=== PATIENT | male | born 1955 | race Caucasian/White ===

== ENCOUNTER → 2020-05-26 08:46 | Outpatient (BNVA) | payer OTHER, SELFPAY | PROVIDERS: Family Provider General Practice; Visit Provider Specialist | DX: G56.03 Carpal tunnel syndrome, bilateral upper limbs (principal); R20.0 Anesthesia of skin; R20.2 Paresthesia of skin | CPT/HCPCS: 95910 ==

== ENCOUNTER 2023-05-08 11:32 | Outpatient (CLI) | payer MEDICARE, SELFPAY ==
--- NOTE | 2023-05-08 11:45 | MR_ITS ---
WS: [id number] MRI LEFT KNEE HISTORY: KNEE DERANGEMENT COMPARISON: None available. Anterior cruciate ligament: Increased signal and thickening consistent with mucoid degeneration. Posterior cruciate ligament: Intact. Medial collateral ligament: Edema surrounds the MCL with mild displacement from the joint line. No fu ll-thickness tear. Posterior lateral corner structures: Intact. Medial menisci: Small caliber posterior horn. Abnormal signal throughout the meniscus consistent with a complex tear. Slightly globular appearance of the posterior horn may be a meniscal fragment. Small caliber and blunted anterior horn. Lateral meniscus: Intact. Normal signal, size and shape. Extensor mechanism: Distal quadriceps tendon and patellar tendons are intact. Fluid and soft tissue: Small suprapatellar joint effusion. Mild soft tissue edema surrounding the kne e. No Bower's cyst. Osseous and articular structures: Patellofemoral compartment: Mild chondromalacia. Medial compartment: Marked narrowing medial compartment with loss of cartilage over the tibial platea u and weightbearing surface of the femoral condyle. Moderate amount of marrow edema in the medial fem oral condyle and tibial plateau. Partially extruded meniscus from the joint line. Lateral compartment: Mild narrowing with thinning and fissuring of the cartilage. MR/MR knee LT wo con* [id number] IMPRESSION: 1. Moderate amount of marrow edema in the medial femoral condyle and tibial pl ate[place]. 2. Marked narrowing medial compartment with complete loss of cartilage. 3. Abnormal signal in the anterior and posterior horns of the medial joint spa ce. Complex tear posterior horn. The anterior horn is slightly truncated and di splaced from the joint line. 4. Small amount of edema and small suprapatellar effusion.
== END 2023-05-08 11:33 | disposition home or self-care (01) ==
PROVIDERS: PCP Internal Medicine; Visit Provider Internal Medicine
DX: M23.92 Unspecified internal derangement of left knee (principal); S83.232A Complex tear of medial meniscus, current injury, left knee, initial encounter; X58.XXXA Exposure to other specified factors, initial encounter; M25.462 Effusion, left knee
CPT/HCPCS: 73721

== ENCOUNTER → 2023-06-14 13:01 | Outpatient (BNVA) | payer MEDICARE, SELFPAY | PROVIDERS: PCP Internal Medicine; Referring Provider Internal Medicine; Visit Provider Dermatology | DX: L81.4 Other melanin hyperpigmentation (principal); L40.0 Psoriasis vulgaris | CPT/HCPCS: 99203 ==

== ENCOUNTER → 2023-07-12 15:20 | Outpatient (BNVA) | payer MEDICARE, SELFPAY | PROVIDERS: PCP Internal Medicine; Visit Provider Dermatology | DX: L40.0 Psoriasis vulgaris (principal); L81.4 Other melanin hyperpigmentation | CPT/HCPCS: 99213 ==

== ENCOUNTER → 2024-01-10 15:22 | Outpatient (BNVA) | payer MEDICARE, SELFPAY | PROVIDERS: PCP Internal Medicine; Visit Provider Dermatology | DX: L40.0 Psoriasis vulgaris (principal); L73.8 Other specified follicular disorders; L81.4 Other melanin hyperpigmentation | CPT/HCPCS: 99213 ==

== ENCOUNTER → 2025-01-09 09:38 | Outpatient (BNVA) | payer MEDICARE, SELFPAY | PROVIDERS: PCP Internal Medicine; Visit Provider Nurse Practitioner Family | DX: L40.0 Psoriasis vulgaris (principal); L73.8 Other specified follicular disorders; L81.4 Other melanin hyperpigmentation; L57.8 Other skin changes due to chronic exposure to nonionizing radiation | CPT/HCPCS: 99214 ==